=== PATIENT | female | born 1985 | race Caucasian/White ===

== ENCOUNTER 2016-02-28 08:26 | Emergency (ER) | payer OTHER ==
[~2016-02-28 08:26] MED LIST: OMEP20CA11 PO; SERT50TA PO; birth control pill
[2016-02-28 08:30] VITALS: PULSE 132; O2SAT 95
--- NOTE | 2016-02-28 09:06 | ED.REPORT ---
HPI-Abd Pain F 40 and Over Date of Service Feb 28, 2016 ED Provider: Dr. Calderon 31 year old female with a hx of Chron's disease presents to the ED with severe LLQ abd pain, nausea and diarrhea onset yesterday. She has been taking antidiarrheals, and antiemetic. She had some relief last night, but returned more severe this AM. She also had chills, diaphoresis and severe L flank/L mid quadrant pain. She has also complains of foul smelling belches. She has a hx of similar in which she has had multiple CT's all at [facility]. PCP: Angelika Ruiz GI: Dr. Muse Nursing Notes Stated Complaint: VOMITING/ABDOMINAL PAIN Chief Complaint: Female Abdominal Pain Nursing Notes Reviewed: Yes Allergies: Coded Allergies: pertussis vaccine,adsorbed (Verified Allergy, Intermediate, unk, 02/28/16) Uncoded Allergies: No Known Allergies (Allergy, Unknown, 10/28/04) Scheduled Omeprazole (Omeprazole) 20 Mg Capsule.dr 20 MG PO DAILY Sertraline HCl (Zoloft) 50 Mg Tablet 150 MG PO DAILY Scheduled PRN oxyCODONE-Acetaminophen 5-325 mg (oxyCODONE-Acetaminophen 5-325 mg) 1 Each Tablet 1-2 TAB PO Q6H PRN PRN For Pain Miscellaneous Medications ([ control pill]) General Time Seen by MD: 09:05 Chief Complaint Abdominal pain, Diarrhea moderate Hx Obtained From: Patient Arrived By: Walk-in Sudden in Onset?: Yes Onset Occurred: Yesterday Symptom Duration: Since onset Progression since Onset: Waxes and wanes Location: : LLQ Quality: Painful Severity: Current: Severe Associated with: Reports: Diarrhea, Nausea Pertinent Negative: Relieved by nothing Similar Sx Previous: Yes Past Medical History Past Medical History Crohn's Disease Sleep apnea Chronic migraines Anxiety Depression Past Surgical History MRSA on upper left thigh which was removed Colonoscopy Knee Smoking History Former Smoker Social History Alcohol Use: "Social" Drug Use: Denies drug use Review of Systems Basic Review of Systems Eyes: Vision NL, No discharge ENT: Hearing NL, No pain, No nasal congestion, No pharyngeal pain Neurologic: NL mental status, No numbness Psychiatric: Normal thought content Constitutional: Reports: Chills, Denies: Fever Respiratory: Denies: Shortness of breath Cardiovascular: Denies: Chest pain GI: Reports: Abdominal pain, Diarrhea, Nausea, Vomiting Female: Denies: Complete sys rev & neg: except as marked. Physical Exam Vital Signs Vital Signs (First) Date Time Temp Pulse Resp B/P Pulse Ox O2 Delivery O2 Flow Rate FiO2 02/28/16 08:30 132 95 Room Air 02/28/16 10:01 36.5 104/69 02/28/16 11:26 18 Initial VS: Reviewed Head / Eyes: Atraumatic, Normocephalic, PERRL ENT: Conjunctiva normal, No scleral icterus Neck: Full range of motion Extremities: Vascular intact, Neuro intact Skin: Warm, Dry, No cyanosis Neurologic: Alert, Oriented, Nonfocal Psychiatric: Mood/affect normal, Behavior normal, Normal thought content General/Constitutional: Awake, Alert Distress / Hydration: Positive: Distress moderate Respiratory / Chest: Breath sounds NL, Breath sounds = bilat, No respiratory distress, No rales, No rhonchi, No wheezing, No stridor Cardiovascular: Heart rate NL, Regular rhythm, Heart sounds NL, Peripheral circulation NL Abdomen: Soft, BS normoactive L mid quadrant and L flank TTP. Back: Atraumatic, Full range of motion Interpretation & Diagnostics Lab Results Interpretation Result Diagram: 02/28/16 0915 02/28/16 0915 Test 02/28/16 08:55 02/28/16 09:15 Hold Urine Received (Received) White Blood Count 7.2th/mm3 (3.8-10.1) Red Blood Count 4.87mil/mm3 (3.90-5.20) Hemoglobin 16.2g/dL (12.0-15.6) Hematocrit 47.0% (35.0-46.0) Mean Corpuscular Volume 96.5fL (81-100) Mean Corpuscular Hemoglobin 33.3pg (27.0-35.0) Mean Corpuscular Hemoglobin Concent 34.5% (32.0-37.0) Red Cell Distribution Width 12.0% (12.3-15.4) Platelet Count 137bil/L (150-400) Neutrophils (%) (Auto) 72.9% (40-74) Lymphocytes (%) (Auto) 17.9% (14-46) Monocytes (%) (Auto) 7.4% (4-12) Eosinophils (%) (Auto) 1.5% (0-5) Basophils (%) (Auto) 0.3% (0-3) Erythrocyte Sedimentation Rate 2mm/hr (0-32) Sodium Level 139mEq/L (134-144) Potassium Level 4.0mEq/L (3.5-5.2) Chloride Level 106mEq/L (97-108) Carbon Dioxide Level 21mmol/L (18-29) Blood Urea Nitrogen 13mg/dL (6-20) Creatinine 0.72mg/dL (0.57-1.00) Estimat Glomerular Filtration Rate 134mL/min (>59) Glucose Level 121mg/dL (60-99) Calcium Level 8.8mg/dL (8.5-10.1) Magnesium Level 2.0mg/dL (1.6-2.6) Total Bilirubin 0.4mg/dL (0.0-1.2) Aspartate Amino Transf (AST/SGOT) 25U/L (0-50) Alanine Aminotransferase (ALT/SGPT) 38U/L (0-32) Alkaline Phosphatase 89U/L (25-150) Total Protein 7.4g/dL (6.4-8.4) Albumin 4.3g/dL (3.4-5.0) Lipase 40U/L (13-60) General Lab Results Interp 1: Labs reviewed Re-Eval/Medical Decision Source of Hx: Old records Summary of Info: Reviewed notes from Dr. Muse Re-Evaluation/Progress : Time of Eval: 10:50 Re-Evaluation/Progress Note: Pain is much improved after pain medications. Discussed plan for discharge and follow up. All questions addressed. Counseled Regarding: Diagnosis, Lab results, Need for follow-up, When/why to return to ED Discharge & Departure Primary Impression: Abdominal pain Abdominal location: left lower quadrant Qualified Code: R10.32 - Left lower quadrant pain Additional Impression: Crohns disease Gastrointestinal tract location: unspecified location Digestive disease complication type: without complications Qualified Code: K50.90 - Crohn's disease, unspecified, without complications Ruled Out: Bowel obstruction, Abscess, Surgical abdomen Disposition: Home Discharge Condition All VS Reviewed: Yes Condition: Improved You improved nicely with fluid and pain medication. Your labs didn't suggest severe disease and we opted to NOT do a CT scan today. You can use 1-2 percoset for severe pain at home. We discussed the problems with narcotics, including masking concerning symptoms and addiction, but there are times where they are helpful, particularly if an ER visit can be avoided. I hope the pill cam is helpful and you find a medication combination that works for you. Best of luck! Referrals: Angelika Ruiz MD (PCP) Scribe Attestation Portions of this note were transcribed by Rosa M Quiros. I, (Dr. Calderon) personally performed the history, physical exam and medical decision-making; I reviewed and confirmed the accuracy of the information in the transcribed note. Signed by: Rosa M Quiros. 02/28/2016, 1050 copies to: Angelika Ruiz MD; Anurag Muse MD, Shawna L MD Feb 28, 2016 09:06 Rosa M Quiros Feb 28, 2016 09:15
[2016-02-28] MEDS ORDERED: Ketorolac 30 mg/mL 2 mL Inj IM ONE (09:10)
[2016-02-28] MEDS ORDERED: Ondansetron 2 mg/mL 2 mL Inj IVPUSH ONE (09:20)
[2016-02-28] MEDS ORDERED: HYDROmorphone 0.5 mg/0.5 mL iSecure Syringe IVPUSH PRN (09:20)
[2016-02-28] MEDS ORDERED: HYDROmorphone 1 mg/mL Inj IVPUSH ONE (09:20)
[2016-02-28] MEDS ORDERED: 0.9% Sodium Chloride 1,000 ML IV ONE (09:20)
[2016-02-28 09:28] LABS: BASOPHILS % (AUTO) 0.3 % (0-3); EOSINOPHILS % (AUTO) 1.5 % (0-5); MONOCYTES % (AUTO) 7.4 % (4-12); Mean Corpuscular Hemoglobin 33.3 pg (27.0-35.0); Mean Corpuscular Volume 96.5 fL (81-100); NEUTROPHILS % (AUTO) 72.9 % (40-74); Platelet Count 137 bil/L (150-400)
[2016-02-28 10:01] VITALS: BP 104/69
[2016-02-28 10:14] LABS: ERYTHROCYTE SEDIMENTATION RATE 2 mm/hr (0-32)
[2016-02-28] MEDS ORDERED: OXYC1TAB24 PO (11:11)
[2016-02-28 11:26] VITALS: BP 120/79; PULSE 91; RESP 18; O2SAT 97
== END 2016-02-28 11:28 | disposition home or self-care (01) ==
LOC: SED 08:26
DX: K50.90 Crohn's disease, unspecified, without complications (principal); Z87.891 Personal history of nicotine dependence; Z88.7 Allergy status to serum and vaccine
CPT/HCPCS: 36415; 80053; 81025; 83690; 83735; 85025; 85651; 90791; 96372; 96374; 96375; 99285; J1170; J1885; J2405; J7030

== ENCOUNTER 2016-03-08 12:38 | Emergency (ER) | payer OTHER ==
[~2016-03-08] VITALS: Ht 154.9 cm; Wt 122.7 kg
[~2016-03-08 12:38] MED LIST changes: +OXYC1TAB24 PO
[2016-03-08 12:48] VITALS: BP 120/59; PULSE 114; RESP 20; O2SAT 93
[2016-03-08 13:16] VITALS: BP 120/59; PULSE 104; RESP 20; O2SAT 100
--- NOTE | 2016-03-08 13:22 | ED.REPORT ---
HPI-Abd Pain F Under 40 Date of Service Mar 08, 2016 ED Provider: Dr. Powers Pt is a 31 year old female with a history of Crohn's disease who presents to the ED with complaints of nausea, vomiting, diarrhea and abdominal pain that started 3 weeks ago. Pt reports that her abdominal pain has recently traveled to her back, and she is unable to alleviate it. Pt reports continued nausea and vomiting, and attributes this to a Crohn's flare up. She denies any fevers, shortness of breath, chest pain, cough, dysuria, hematochezia or any other symptoms. She reports that she was recently prescribed some new medications while in the ED, but she has not taken them, because she reports that "she doesn 't know what they are for, and doesn't think they will help" Nursing Notes Stated Complaint: ABDOMINAL AND BACK PAIN Chief Complaint: Female Abdominal Pain Nursing Notes Reviewed: Yes Allergies: Coded Allergies: pertussis vaccine,adsorbed (Verified Allergy, Intermediate, unk, 02/28/16) morphine (Verified Allergy, Mild, 03/08/16) prednisone (Verified Allergy, Mild, 03/08/16) Uncoded Allergies: No Known Allergies (Allergy, Unknown, 10/28/04) Scheduled Omeprazole (Omeprazole) 20 Mg Capsule.dr 20 MG PO DAILY Sertraline HCl (Zoloft) 50 Mg Tablet 150 MG PO DAILY Scheduled PRN oxyCODONE-Acetaminophen 5-325 mg (oxyCODONE-Acetaminophen 5-325 mg) 1 Each Tablet 1-2 TAB PO Q6H PRN PRN For Pain Miscellaneous Medications ([ control pill]) General Time Seen by MD: 13:21 Chief Complaint Abdominal pain Hx Obtained From: Patient Arrived By: Walk-in Sudden in Onset?: Yes Onset Occurred: More than a week ago... (3 weeks) Symptom Duration: Since onset Location: : Diffuse Quality: Painful Radiation: : Back Severity: Current: Moderate Severity: Maximum: Moderate Similar Sx Previous: Yes Past Medical History Past Medical History Crohn's Disease Sleep apnea Chronic migraines Anxiety Depression Past Surgical History MRSA on upper left thigh which was removed Colonoscopy Knee Smoking History Former Smoker Social History Alcohol Use: "Social" Drug Use: Denies drug use Ambulatory Status Independent Review of Systems Constitutional: Denies: Chills, Fever, Malaise, Weakness - generalized Respiratory: Denies: Non-productive cough, Shortness of breath, Wheezing Cardiovascular: Denies: Chest pain, Syncope GI: Reports: Abdominal pain, Diarrhea, Nausea, Vomiting Female: Denies: Dysuria, Flank pain, Urinary frequency, Urinary urgency Musculoskeletal: Denies: Back pain, Extremity pain Complete sys rev & neg: except as marked. Physical Exam Initial Vital Signs Vital Signs (First) Date Time Temp Pulse Resp B/P Pulse Ox O2 Delivery O2 Flow Rate FiO2 03/08/16 12:48 36.5 114 20 120/59 93 Room Air Initial VS: Reviewed Head / Eyes: Atraumatic, Normocephalic, PERRL ENT: Mucous membranes moist, Conjunctiva normal, No scleral icterus Neck: Supple, Non-tender, Full range of motion Skin: Warm, Dry, No cyanosis Neurologic: Alert, Oriented, Nonfocal Psychiatric: Mood/affect normal, Behavior normal, Normal thought content General/Constitutional: Awake, Alert, Well appearing, Cooperative Appearance / Presentation: Positive: Obese, Uncomfortable Respiratory / Chest: Atraumatic, Breath sounds NL, Breath sounds = bilat, No respiratory distress Cardiovascular: Heart rate NL, Regular rhythm, Heart sounds NL, No gallop Abdomen: Atraumatic, Soft, No guarding, No rebound Tenderness/Guarding/Rebound: Positive: Tender diffuse Back: Atraumatic, Inspection NL, No CVA tenderness Interpretation & Diagnostics Lab Results Interpretation Test 03/08/16 13:55 Hold Purple Top Tube Received (Received) Hold Blue Top Tube Received (Received) Hold Red Top Tube Received (Received) Hold [place] Top Tube Received (Received) Re-Eval/Medical Decision Source of Hx: Old records Summary of Info: Last endoscopy was 9 months ago Last colonoscopy was a couple of years ago Re-Evaluation/Progress : Time of Eval: 14:25 Re-Evaluation/Progress Note: Pt is rechecked, she reports that she is feeling much improved with the medications that were given. She reports that she has never received an effective medication to alleviate her symptoms. She is informed of the plan to discharge her, she understands and agrees, all questions are addressed. Counseled Regarding: Diagnosis, Lab results, When/why to return to ED Discharge & Departure Primary Impression: Crohns disease Additional Impression: Abdominal pain Disposition: Home Discharge Condition All VS Reviewed: Yes Condition: Stable Patient Instructions: Crohn's Disease (ED) Additional Instructions: Take ibuprofen 800mg every 8 hours as needed for pain. Take Tylenol 1000 mg every 6 hours as needed for pain. Use Hyoscyamine, metoclopramide or haloperidol as needed for abdominal cramps. Call Dr. Buck's office Thursday for a sooner follow-up appointment. Referrals: Angelika Ruiz MD (PCP) Scribe Attestation Portions of this note were transcribed by Jayla Goddard. I, Dr. Powers personally performed the history, physical exam and medical decision-making; I reviewed and confirmed the accuracy of the information in the transcribed note. Signed by: Jayla Frazier, 03/08/2016 [id number] copies to: Angelika Ruiz MD, Kirk H MD Mar 08, 2016 13:22 FAIZAN GODDARD Mar 08, 2016 13:29
[2016-03-08] MEDS ORDERED: 0.9% Sodium Chloride 1,000 ML IV ONE (13:37)
[2016-03-08] MEDS ORDERED: Dexamethasone 10 mg/mL Inj IVPUSH ONE (13:40)
[2016-03-08] MEDS ORDERED: Ondansetron 2 mg/mL 2 mL Inj IVPUSH ONE (13:40)
[2016-03-08] MEDS ORDERED: Acetaminophen IV 1,000 MG in IV Premix 1 EACH IV ONE (13:40)
[2016-03-08] MEDS ORDERED: MetoCLOpramide 5 mg/mL 2 mL Inj IVPUSH ONE (13:40)
[2016-03-08] MEDS ORDERED: Haloperidol 5 mg/mL Inj IVPUSH ONE (13:40)
[2016-03-08] MEDS ORDERED: HALO2TAB PO (15:07)
[2016-03-08] MEDS ORDERED: METO10TA3 PO (15:07)
[2016-03-08] MEDS ORDERED: HYOS0.1217 PO (15:07)
[2016-03-08 15:17] VITALS: BP 127/79; PULSE 92; RESP 16; O2SAT 100
[2016-03-08 15:23] VITALS: BP 127/79; PULSE 92; RESP 16; O2SAT 100
== END 2016-03-08 15:24 | disposition home or self-care (01) ==
LOC: SED 12:38
DX: K50.90 Crohn's disease, unspecified, without complications (principal); Z87.891 Personal history of nicotine dependence; Z88.5 Allergy status to narcotic agent; Z88.8 Allergy status to other drugs, medicaments and biological substances
CPT/HCPCS: 96361; 96374; 96375; 99284; J0131; J1100; J1200; J1630; J2405; J2765; J7030

== ENCOUNTER 2016-09-05 10:58 | Emergency (ER) | payer OTHER ==
[~2016-09-05] VITALS: Ht 154.9 cm; Wt 122.3 kg
[~2016-09-05 10:58] MED LIST changes: +HALO2TAB PO; +HYOS-19 PO; +METO10TA3 PO
[2016-09-05] MEDS ORDERED: ONDA4TAB9 PO (11:03)
[2016-09-05] MEDS ORDERED: [UNRECOGNIZED DRUG - CODE] IJ (11:03)
[2016-09-05 11:06] VITALS: BP 121/82; PULSE 92; RESP 14; O2SAT 98
--- NOTE | 2016-09-05 11:16 | ED.REPORT ---
HPI-Abd Pain F Under 40 Date of Service Sep 05, 2016 ED Provider: Sarah Johns History of Present Illness: abd pain since last night. Same pain that she normally has with chron's. At [facility] for fluids nausea better but still with pain. GI is wak[facility]. 08/02 pain Nursing Notes Stated Complaint: ABDOMINAL PAIN WITH CROHNS Chief Complaint: Female Abdominal Pain Nursing Notes Reviewed: Yes Allergies: Coded Allergies: pertussis vaccine,adsorbed (Verified Allergy, Intermediate, unk, 02/28/16) morphine (Verified Allergy, Mild, 03/08/16) prednisone (Verified Allergy, Mild, 03/08/16) Scheduled PRN Ondansetron ODT (Zofran ODT) 4 Mg Tablet 4 MG PO Q4H PRN PRN For Nausea Miscellaneous Medications Methylprednisolone Acetate (Depo-Medrol) 20 Mg/1 Ml Vial 20 MG IJ General Time Seen by MD: 11:14 Chief Complaint Abdominal pain Hx Obtained From: Patient Sudden in Onset?: No Location: : Lower-adnexal region zachariah Past Medical History Past Medical History Crohn's Disease Sleep apnea Chronic migraines Anxiety Depression Past Surgical History MRSA on upper left thigh which was removed Colonoscopy Knee Smoking History Former Smoker Social History Alcohol Use: "Social" Drug Use: Denies drug use Occupation single lives by self, 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 09/05/2016 Ambulatory Status Independent Review of Systems Basic Review of Systems Eyes: Vision NL, No discharge Allergy / Immune: No allergy Psychiatric: Normal thought content Physical Exam Initial Vital Signs Vital Signs (First) Date Time Temp Pulse Resp B/P Pulse Ox O2 Delivery O2 Flow Rate FiO2 09/05/16 11:06 37.0 92 14 121/82 98 Room Air Initial VS: Reviewed, Vital signs normal Head / Eyes: Atraumatic, Normocephalic, PERRL ENT: Mucous membranes moist, Conjunctiva normal, No scleral icterus Neck: Supple, Non-tender, Full range of motion Lymphatic: No lymphadenopathy Extremities: Vascular intact, Neuro intact, No swelling, No tenderness Skin: Warm, Dry, No cyanosis Neurologic: Alert, Oriented, Nonfocal Psychiatric: Mood/affect normal, Behavior normal, Normal thought content General/Constitutional: Awake, Alert, No acute distress, Well appearing, Well developed, Well hydrated Respiratory / Chest: Atraumatic, Breath sounds NL, Breath sounds = bilat, No respiratory distress Cardiovascular: Heart rate NL, Regular rhythm, Heart sounds NL, No gallop Abdomen: Atraumatic, Soft, Non-tender, McBurney's non-tender Interpretation & Diagnostics Lab Results Interpretation Result Diagram: 09/05/16 1144 09/05/16 1144 Test 09/05/16 11:44 09/05/16 12:17 White Blood Count 8.6th/mm3 (3.8-10.1) Red Blood Count 4.68mil/mm3 (3.90-5.20) Hemoglobin 15.1g/dL (12.0-15.6) Hematocrit 44.2% (35.0-46.0) Mean Corpuscular Volume 94.4fL (81-100) Mean Corpuscular Hemoglobin 32.3pg (27.0-35.0) Mean Corpuscular Hemoglobin Concent 34.2% (32.0-37.0) Red Cell Distribution Width 12.7% (12.3-15.4) Platelet Count 145bil/L (150-400) Neutrophils (%) (Auto) 71.9% (40-74) Lymphocytes (%) (Auto) 20.5% (14-46) Monocytes (%) (Auto) 6.2% (4-12) Eosinophils (%) (Auto) 1.1% (0-5) Basophils (%) (Auto) 0.2% (0-3) Sodium Level 140mEq/L (134-144) Potassium Level 4.5mEq/L (3.5-5.2) Chloride Level 108mEq/L (97-108) Carbon Dioxide Level 19mmol/L (18-29) Blood Urea Nitrogen 13mg/dL (6-20) Creatinine 0.64mg/dL (0.57-1.00) Estimat Glomerular Filtration Rate 154mL/min (>59) Glucose Level 104mg/dL (60-99) Calcium Level 8.7mg/dL (8.5-10.1) Total Bilirubin 0.5mg/dL (0.0-1.2) Aspartate Amino Transf (AST/SGOT) 22U/L (0-50) Alanine Aminotransferase (ALT/SGPT) 43U/L (0-32) Alkaline Phosphatase 72U/L (25-150) Total Protein 7.0g/dL (6.4-8.4) Albumin 4.2g/dL (3.4-5.0) Urine Color Yellow (YELLOW) Urine Appearance Hazy (CLEAR,HAZY) Urine pH 5.5 (5.0-8.0) Urine Specific [place]mond 1.025 (1.003-1.035) Urine Protein Negativemg/dL (NEG,TRACE) Urine Glucose (UA) Negativemg/dL (NEGATIVE) Urine Ketones Negativemg/dL (NEGATIVE) Urine Occult Blood Trace (NEGATIVE) Urine Nitrite Negative (NEGATIVE) Urine Bilirubin Negative (NEGATIVE) Urine Urobilinogen Normalmg/dL (NORMAL) Urine Leukocyte Esterase Negative (NEGATIVE) Urine RBC 0-2/hpf (0-2) Urine WBC 0-5/hpf (0-5) Urine Epithelial Cells Occasional/hpf (NONE-MOD) Urine Crystals None seen (NONE SEEN) Urine Bacteria Few/hpf (NONE-FEW) Urine Hyaline Casts None/lpf (NONE) Urine Granular Casts None seen (NONE SEEN) Urine Waxy Casts None seen (NONE SEEN) Urine Red Blood Cell Casts None seen (NONE SEEN) Urine White Blood Cell Casts None seen (NONE SEEN) Urine Mucus Present (None Seen) Urine Trichomonas None seen (NONE SEEN) Urine Yeast None (NONE SEEN) Urinalysis Comment None Urine Culture Reflexed Not indicated Lab Results Interpretation: urine is negative CT Abd / Pelvis Interpretation PROCEDURE: CT ABDOMEN AND PELVIS WITH CONTRAST ([id number]) INDICATIONS: Possible Crohn's disease flare. TECHNIQUE: After the administration of oral and intravenous contrast, 5 mm thick sections acquired from the diaphragms to the symphysis. 5 mm thick coronal and sagittal reformats were performed. For radiation dose reduction, the following was used: automated exposure control, adjustment of mA and/or kV according to patient size. COMPARISON: None. FINDINGS: Image quality: Excellent. ABDOMEN: Lung bases: Lung bases are clear. Heart size is normal. Solid organs: Liver and spleen are normal in size and enhancement. Gallbladder appears normal. Biliary system is non-dilated. Pancreas enhances normally. No adrenal nodules. Kidneys are normal in size and enhancement, without hydronephrosis. Peritoneum and bowel: Stomach, small bowel, and colon loops are normal in caliber and wall thickness. No free fluid or air. Nodes and vessels: No retroperitoneal or mesenteric adenopathy. Aorta and inferior vena cava are normal in caliber. Miscellaneous: No ventral hernias. PELVIS: Genitourinary: Bladder wall thickness is normal. Miscellaneous: No inguinal hernias or adenopathy. Normal appendix found. Bones: No suspicious bony lesions. No vertebral body compression fractures. IMPRESSION: No areas of bowel inflammation is seen, no abscess or fistula is found. Source of current abdominal/pelvic pain is not seen. Normal appendix identified. Dictated by: Rashawn Abdul M.D. on 09/05/2016 at 13:15 Approved by: Rashawn Abdul M.D. on 09/05/2016 at 13:17 Re-Eval/Medical Decision Med Decision/Clinical Course Med Decision/Clinical Course: 31 year old presents for evualation of abd pain after being seen in [facility] for fluids.Discussed patient with DR. Muse. Recommends abd/pelvis CT. Patient has good pain relief with .[address] does not provide any answers. No sign of obstruction or appendicitis Discharge & Departure Primary Impression: Abdominal pain Abdominal location: lower abdomen, unspecified Qualified Code: R10.30 - Lower abdominal pain, unspecified Disposition: Home Patient Instructions: Acute Abdominal Pain (ED) Additional Instructions: Your labs are normal. The urine is normal, no sign of infection. The CT does not identify the cause of your abdominal pain. The pain has decreased with the dilaulid. A small amount of percocet will be provided. Please call Dr. Muse for follow up. I am sorry this is happening. Referrals: Angelika Ruiz MD (PCP) Anurag Muse MD EDSupervising Provider for APC: García Onofre DO copies to: Anurag Muse MD, Sue ARNP Sep 05, 2016 11:16
[2016-09-05] MEDS ORDERED: HYDROmorphone 0.5 mg/0.5 mL iSecure Syringe IVPUSH ONE (11:35)
[2016-09-05] MEDS ORDERED: Ondansetron 2 mg/mL 2 mL Inj IVPUSH PRN (11:35)
[2016-09-05] MEDS ORDERED: Iohexol 300 mg/mL 30 mL Inj PO ONE (11:45)
[2016-09-05 11:54] LABS: BASOPHILS % (AUTO) 0.2 % (0-3); EOSINOPHILS % (AUTO) 1.1 % (0-5); MONOCYTES % (AUTO) 6.2 % (4-12); Mean Corpuscular Hemoglobin 32.3 pg (27.0-35.0); Mean Corpuscular Volume 94.4 fL (81-100); NEUTROPHILS % (AUTO) 71.9 % (40-74); Platelet Count 145 bil/L (150-400)
[2016-09-05 12:59] LABS: APPEARANCE,URINE HAZY (CLEAR,HAZY); COLOR,URINE YELLOW (YELLOW); OCCULT BLOOD,URINE TRACE (NEGATIVE); PH,URINE 5.5 (5.0-8.0); UROBILINOGEN,URINE NORMAL (NORMAL)
--- NOTE | 2016-09-05 13:19 | DRSVH ---
PROCEDURE: CT ABDOMEN AND PELVIS WITH CONTRAST ([id number]) INDICATIONS: Possible Crohn's disease flare. TECHNIQUE: After the administration of oral and intravenous contrast, 5 mm thick sections acquired from the diap hragms to the symphysis. 5 mm thick coronal and sagittal reformats were performed. For radiation do se reduction, the following was used: automated exposure control, adjustment of mA and/or kV accordi ng to patient size. COMPARISON: None. FINDINGS: Image quality: Excellent. ABDOMEN: Lung bases: Lung bases are clear. Heart size is normal. Solid organs: Liver and spleen are normal in size and enhancement. Gallbladder appears normal. Chriss iary system is non-dilated. Pancreas enhances normally. No adrenal nodules. Kidneys are normal in size and enhancement, without hydronephrosis. Peritoneum and bowel: Stomach, small bowel, and colon loops are normal in caliber and wall thickness . No free fluid or air. Nodes and vessels: No retroperitoneal or mesenteric adenopathy. Aorta and inferior vena cava are no rmal in caliber. Miscellaneous: No ventral hernias. PELVIS: Genitourinary: Bladder wall thickness is normal. Miscellaneous: No inguinal hernias or adenopathy. Normal appendix found. Bones: No suspicious bony lesions. No vertebral body compression fractures. IMPRESSION: No areas of bowel inflammation is seen, no abscess or fistula is found. Source of curren t abdominal/pelvic pain is not seen. Normal appendix identified. Dictated by: Rashawn Abdul M.D. on 09/05/2016 at 13:15 Approved by: Rashawn Abdul M.D. on 09/05/2016 at 13:17
[2016-09-05 14:03] VITALS: BP 134/89; PULSE 82; RESP 16; O2SAT 100
[2016-09-05 14:04] VITALS: BP 134/89; PULSE 82; RESP 16; O2SAT 100
== END 2016-09-05 14:04 | disposition home or self-care (01) ==
LOC: SED 10:58
DX: R10.30 Lower abdominal pain, unspecified (principal); F41.8 Other specified anxiety disorders; K50.90 Crohn's disease, unspecified, without complications; G43.909 Migraine, unspecified, not intractable, without status migrainosus; Z87.891 Personal history of nicotine dependence; Z88.5 Allergy status to narcotic agent; Z88.7 Allergy status to serum and vaccine; Z88.8 Allergy status to other drugs, medicaments and biological substances
CPT/HCPCS: 36415; 74177; 80053; 81000; 81025; 85025; 96374; 99285; J1170; Q9967

== ENCOUNTER → 2016-09-17 | Day surgery (SDC) | payer OTHER ==
[~2016-09-17] VITALS: Ht 154.9 cm; Wt 122.0 kg
[~2016-09-17] MED LIST changes: +0.9% Sodium Chloride 1,000 ML IV SCH; +EPIN0.3P2 IJ; -HALO2TAB PO; +HYDR-4003 PO; -HYOS-19 PO; +HYOS-22 PO; +MEDR150D9 IM; -METO10TA3 PO; -OMEP20CA11 PO; -OXYC1TAB24 PO; -SERT50TA PO; +Sodium Chloride LOK Flush 10 mL Syringe IV PRN; -birth control pill; +fentaNYL-PF 50 mCg/mL 2 mL Inj IVPUSH PRN
[2016-09-17 14:04] VITALS: BP 153/80; PULSE 101; RESP 15; O2SAT 95
[2016-09-17 15:55] VITALS: BP 129/85; PULSE 88; RESP 14; O2SAT 98
[2016-09-17 16:04] VITALS: BP 125/76; PULSE 83; RESP 14; O2SAT 98
--- NOTE | 2016-09-17 16:29 | ENDO ---
[address] [address] ENDOSCOPY PROCEDURE PATIENT: ANGEL ARCHER : 1985 MR#: [id number] ADMIT: 09/17/2016 JOB ID: [id number] PRIMARY CARE PHYSICIAN: Angelika Ruiz MD PROCEDURE: Colonoscopy with biopsies. INDICATIONS: A 31-year-old female with a historical diagnosis of inflammatory bowel disease. She has considerable symptoms of intermittent diarrhea and severe abdominal pain requiring ER visits and has been using intermittent opiates. Endoscopic interrogation is pursued to evaluate the extent of the inflammatory process. EQUIPMENT: PCGlassy Pro H 180 AL. SEDATION: Versed 7 mg and 150 mcg fentanyl. COMPLICATIONS: None identified. PREPARATION QUALITY: Bowel prep excellent. PROCEDURE INFORMATION: After the risks and benefits were explained, written and verbal informed consent was obtained. The patient was brought into the endoscopy suite and placed into the left lateral decubitus position. Sedation was achieved using the above-stated medications with the addition of oxygen via nasal cannula. A digital rectal examination was accomplished. No significant pathology appreciated. The scope was introduced into the rectum and advanced under direct visualization to the cecum as identified by the appendiceal orifice and ileocecal valve. The terminal ileum was briefly accessed and the scope then slowly withdrawn to carefully examine the mucosa for any defects or lesions. Multiple direct views were made through the dentate line for exclusion of pathology. The colon was decompressed and the scope removed from the patient, who tolerated the procedure well. FINDINGS: The terminal ileum appeared completely normal. No erosions, no erythema. Normal well-formed villi visualized. Multiple photographs taken. I did not see any evidence of significant macroscopic colitis. No evidence of proctitis. For the most part the mucosa appeared quite normal and healthy throughout. In the transverse colon there was one section were there were a few scattered erosions evident. A couple of these were targeted for histopathology. Otherwise random colon biopsy was taken from the right colon and left colon. There was some mild erythema seen throughout the sigmoid colon, but I suspect this is in essence a little bit of scope induced hyperemia from the procedure itself, not necessarily indicative of inflammation. That said, the left colon biopsy was acquired from an area of mild mucosal erythema in the sigmoid. I did not appreciate any significant colon polyps or mass lesions throughout. ENDOSCOPIC DIAGNOSES: 1. Very subtle transverse grouping of erosions. 2. Otherwise visually unremarkable colonoscopy to cecum and terminal ileum. RECOMMENDATIONS: 1. Await histopathology. 2. The patient is encouraged to continue hydration, activity, and the bowel regimen with sauerkraut, dilute ground flaxseed fiber, soaked darius seeds, etc. 3. At this point I do not see a strong indication for an IBD specific medication based on the lack of visual significant inflammation. 4. The patient is encouraged to trial the Levsin should she feel it needed. 5. Follow up on symptoms in the next four weeks or so in my office. CC: Angelika Ruiz MD
--- NOTE | 2016-09-22 11:03 | PATH ---
SURGICAL PATHOLOGY Attending Physician:Noe Luong CASE STATUS: Signed Out PATIENT NAME: ANGEL ARCHER. PID: [id number] : 1985 DATE COLLECTED:09/17/2016 00:00 SPECIMEN: 1: Colon, Biopsy 2: Colon, Biopsy 3: Colon, Biopsy CLINICAL HISTORY: 1). RIGHT COLON BIOPSY 2). LEFT COLON BIOPSY 3). TRANSVERSE COLON EROSION BIOPSY FINAL DIAGNOSIS: 1. Right Colon Biopsy: Colonic mucosa with no diagnostic abnormality. Negative for active, chronic and microscopic colitis. Negative for dysplasia and malignancy. 2. Left Colon Biopsy: Colonic mucosa with no diagnostic abnormality. Negative for active, chronic and microscopic colitis. Negative for dysplasia and malignancy. 3. Transverse Colon Erosion, Biopsy: Colonic mucosa with focal area of active colitis, with epithelial and stromal changes consistent with healed erosion, involving 1 of 2 fragments. See comment. Negative for ischemic changes. No definite viral cytopathic features are identified. Background mucosa negative for chronic and microscopic colitis. Negative for dysplasia and malignancy. Additional deeper levels examined. COMMENT: Part 3) The features of focal active colitis are non-specific and can be seen secondary to an infection and/or drugs (such as NSAIDS, etc.) among others. A viral stain for HSV1/2 and CMV antigens will be performed and the results will be reported as an addendum. ICD10: K63. GROSS DESCRIPTION: The specimen is received in three formalin filled containers labeled with the patient's name. 1). The specimen is labeled "right colon" and consists of an extremely tiny less than 0.1 CM portion of tissue which is entirely submitted in cassette 1A. 2). The specimen is labeled "left colon" and consists of a 0.2 x 0.2 x 0.1 CM portion of tissue which is entirely submitted in cassettes 2A. 3). The specimen is labeled "transverse colon erosion" and consists of 2 portions of tissue which aggregate to 0.3 x 0.2 x 0.2 CM. The specimen is entirely submitted in cassette 3A. 09/18/2016NH ICD-9 CODES: CPT CODES: 1: 67860 2: 36986 3: 98213, 07298, 38727 PROCEDURE/ADDENDA: Immunohistochemistry SPI Interpretation {Not Entered} Results-Comments This addendum is issued to report the results of HSV 1, HSV 2, and CMV antigens by immunohistochemistry. Part 3. Designated as "Transverse colon erosion", biopsy: - Negative for HSV 1, HSV 2, and CMV antigens by immunohistochemical stain. The control stains show appropriate reactivity. The final diagnosis remains the same. This test was developed and its performance characteristics determined by [facility]. It has not been cleared or approved by the [place]. Food and Drug Administration. The FDA has determined that such clearance or approval is not necessary. This test is used for clinical purposes. It should not be regarded as investigational or for research. Electronically Signed Out Cirilo Dupont MD Electronically Signed Out Cirilo Dupont MD [facility] [address], [place] [address] Technical component performed at [facility], [address], [place], [address]
== END | disposition home or self-care (01) ==
LOC: END 00:51
PROVIDERS: ATTEND Internal Medicine Gastroenterology
DX: K58.9 Irritable bowel syndrome, unspecified (principal)
CPT/HCPCS: 45380; 99153; G0500; J2250; J3010; J7030